=== PATIENT | male | born 1940 | race Two or more races ===

== ENCOUNTER 2025-02-02 08:53 | Emergency (ER) | payer OTHER, MEDICARE ==
[2025-02-02 09:07] VITALS: BP 130/63; PULSE 54; RESP 18; TEMP 97.1; O2SAT 96
== END 2025-02-02 10:07 | disposition left against medical advice (07) ==
LOC: ER 08:53
DX: R19.7 Diarrhea, unspecified (principal); Z53.21 Procedure and treatment not carried out due to patient leaving prior to being seen by health care provider